=== PATIENT | female | born 1950 ===

== ENCOUNTER 2023-09-04 11:33 | Outpatient (AMB) | payer OTHER, SELFPAY ==
[2023-09-04 11:42] VITALS: BMI 32.9
--- NOTE | 2023-09-04 11:42 | A.OFFVIS_ITS ---
Intake VS Expanded 09/04/23 11:42 09/12/23 13:42 Height 5 ft 5 in 5 ft 5 in Weight 197 lb 8.547 oz 198 lb BMI 32.9 32.9 Intake Visit Reasons: DM2, appt confirmed Medication List - Last Reconciled 09/12/[address], LDN hydrochlorothiazide 12.5 mg PO DAILY lisinopril 10 mg PO DAILY ie-qqs-cftye-calcium carb-K1 400 mcg-500 mg calcium-20 mcg (Women's 50 Plus Multivitamin) tabs PO pravastatin 20 mg PO DAILY HPI Nutrition Presentation Details PT presents for MNT for T2DM. Pt was referred by primary care provider Jefe Gay NP from [facility]. Pt reports feeling well. Typical meal intake B: rice krispies cereal or cornflakes banana, milk 2%) L: sandwich and soup ( chicken noodle vegetables soup) water or OJ or soda (seldom) snack tyree crackers or milk D: vegetable , fish 3 times/wk , baked chicken with rice/ spaghetti , ater or juice Denies alcohol/smoking Physical activity daily life activities food frequency fruits 0-1/d vegetables daily 2 serving dairy : 2-3 starches > 20 servings/ protein 10 oz/d EGP-Xeglhqy-Ey.Jeor Equation Height 5 ft 5 in Weight 198 lb Resting Metabolic Rate 1413.85 Calculated Activity Level Mild Activity Calories Needed to Maintain Weight 1944.04 Diagnosis Nutrition problem #1 food nutri know defi As related to (etiology) #1 diagnosis As evidenced by (sign/symptom) #1 knowledge deficit of diet Monitoring/Goals Nutrition problem monitoring level of knowledge/skill Nutrition goal/outcome list 3 CHO foods and list 3 high fiber foods Outcome progress verbalized understanding Learning/Education Readiness to learn good Stages of change preparation Educational materials provided Yes (meal planning) Most Recent Diabetes Results: No Data to Display [facility] Medical History (Updated 09/12/23 @ 13:[address], LDN) Osteopenia Hyperlipidemia Surgical History (Updated 09/12/23 @ 13:[address], LDN) History of partial mastectomy of left breast Assessment & Plan Assessment & Plan (1) T2DM (type 2 diabetes mellitus): Code(s): E11.9 - Type 2 diabetes mellitus without complications Plan: wt: 90 kg Est kcal needs as per MSJ: 1900 (40% carb, 30% protein/fat) Est fluid needs as per 25-30 ml/d: 2250 Est prot per day as per 1 g/kg bw: 90 Recommend fiber intake : 8-10 g per day and gradually increase to 25-28 g per day for women and 35-38 g for men or as tolerated Recommend sodium intake per day : less than 2000 mg Educated patient on: ( R = reviewed V = verbalizes understanding N/R = needs review N/A = not applicable * Food sources of carbohydrate, adequate serving sizes and its role in various health conditions: R * Differences between complex carbohydrates a simple carbohydrates, role of fiber in diet: R * Differences between types of fats and role in diet (mono on saturated fat fatty acids, saturated fatty acids, trans fats): R basic * Food sources of sodium in salt and healthy modifications for heart health in kidney health: R * Healthy plate method concept: R * Physical activity: Benefits a precaution: R * Dietary prevention of Hyperglycemia: R Patient Instructions: Reduce on total carbohydrat to 45-60 g following healthy plate method Drink water with meals Choose fiber containing foods (cereals/starches/fruits/vegs) Coding Level of Care Code Nutr Indiv Intake (62916) Diagnoses T2DM (type 2 diabetes mellitus) E11.9 Time Spent (min) 30
[2023-09-12 13:42] VITALS: BMI 32.9
== END 2023-09-04 12:12 | disposition home or self-care (01) ==
LOC: HO.ENCR 11:33
PROVIDERS: Visit Provider Dietitian, Registered
DX: E11.9 Type 2 diabetes mellitus without complications (principal)

== ENCOUNTER → 2023-09-04 11:33 | Outpatient (BNVA) | payer OTHER, SELFPAY | PROVIDERS: Visit Provider Dietitian, Registered | DX: E11.9 Type 2 diabetes mellitus without complications (principal); Z71.3 Dietary counseling and surveillance | CPT/HCPCS: 97802 ==

== ENCOUNTER 2023-10-30 09:47 | Outpatient (AMB) | payer OTHER, SELFPAY ==
--- NOTE | 2023-10-30 09:51 | MHC.AMNUTRGE ---
Intake VS Expanded 10/30/23 09:54 Height 5 ft 5 in Weight 194 lb 3.636 oz BMI 32.3 Intake Visit Reasons: [id number] HPI Nutrition Presentation Details Pt presents for MNT f/u for T2DM controlled by diet and exercise . Pt was referred by PCP, Dr. Petr Waller, [facility] Pt reports working on meal portion sizes. Pt has questions regarding food labels. Today we will review labels/carbs and sodium Fried food/wk: 0-1/wk, baking mostly eating out /wk and choices:0-1/x, choosing salads or sand preferably Dairy serving/d and choices: 1-2 (milk, cheese) Fruit servings/d : 3 + d/ay vegetable servings: 3 serving/d starchy vex/wk protein serving/d : 6-9 oz/d including fish 2-3 x/wk/ Beverages of choice:water, tea, milk about 64 oz/d physical activity: dailylife activities Most Recent Diabetes Results: No Data to Display [facility] Medical History (Updated 09/12/23 @ 13:[address], LDN) Osteopenia Hyperlipidemia Surgical History (Updated 09/12/23 @ 13:[address], LDN) History of partial mastectomy of left breast Assessment & Plan Assessment & Plan (1) T2DM (type 2 diabetes mellitus): Code(s): E11.9 - Type 2 diabetes mellitus without complications Plan: wt: 90 kg (88 kg on 10/2023) Est kcal needs as per MSJ: 1900 (40% carb, 30% protein/fat) Est fluid needs as per 25-30 ml/d: 2250 Est prot per day as per 1 g/kg bw: 90 Recommend fiber intake : 8-10 g per day and gradually increase to 25-28 g per day for women and 35-38 g for men or as tolerated Recommend sodium intake per day : less than 2000 mg Educated patient on: ( R = reviewed V = verbalizes understanding N/R = needs review N/A = not applicable Food sources of carbohydrate, adequate serving sizes and its role in various health conditions: R Differences between complex carbohydrates a simple carbohydrates, role of fiber in diet: R Differences between types of fats and role in diet (mono on saturated fat fatty acids, saturated fatty acids, trans fats): R basic Food sources of sodium in salt and healthy modifications for heart health in kidney health: R Healthy plate method concept: R Physical activity: Benefits a precaution: R Dietary prevention of Hyperglycemia: R Patient Instructions: Read food label, reducing total carb at meal time to 60 g , continue choosing foods high in fiber : 3 g or more per serving Work on reducing amount of sodium, choose low sodium seasonings - see list of options for meals with less salt Continue physically active as able and keeping hydrated by having water with meals/snacks Coding Level of Care Code Nutr Indiv Subseq (88157) Diagnoses T2DM (type 2 diabetes mellitus) E11.9 Time Spent (min) 30
[2023-10-30 09:54] VITALS: BMI 32.3
== END 2023-10-30 10:34 | disposition home or self-care (01) ==
PROVIDERS: Visit Provider Dietitian, Registered
DX: E11.9 Type 2 diabetes mellitus without complications (principal)

== ENCOUNTER → 2023-10-30 09:47 | Outpatient (BNVA) | payer OTHER, SELFPAY | PROVIDERS: Visit Provider Dietitian, Registered | DX: E11.9 Type 2 diabetes mellitus without complications (principal); Z71.3 Dietary counseling and surveillance | CPT/HCPCS: 97803 ==

== ENCOUNTER 2024-01-16 09:35 | Outpatient (AMB) | payer OTHER, SELFPAY ==
--- NOTE | 2024-01-16 09:42 | A.OFFVIS_ITS ---
Intake VS Expanded 01/16/24 09:43 01/23/24 09:22 Height 5 ft 5 in 5 ft 5 in Weight 197 lb 1.492 oz 197 lb BMI 32.8 32.8 Intake Visit Reasons: DM HPI Nutrition Presentation Details Pt presents for MNT f/u for T2DM controlled via diet and exercise. Patient was referred by Dr. Eleazar Lowry/Martin Gay NP Patient's most recent A1c at 6.9% June/2023 Patient reports typically having 3 meals per day including a variety food and following healthy plate method fish: 3 times/wk Includes Nuts fruits: daily water: 16-24 oz water and 8-12 oz of glass of milk Day ring 0-1 per day reports taking a calcium supplement once a day exercise class twice a week Saturday and Sat ( [facility]) QQJ-Rsamaoq-Qj.Jeor Equation Height 5 ft 5 in Weight 197 lb Resting Metabolic Rate 1409.32 Calculated Activity Level Sedentary Calories Needed to Maintain Weight 1691.18 Diagnosis Nutrition problem #1 food nutri know defi As related to (etiology) #1 diagnosis As evidenced by (sign/symptom) #1 knowledge deficit of diet (Portion size) Monitoring/Goals Nutrition problem monitoring level of knowledge/skill, total PRO intake, total CHO intake and oral fluids Nutrition goal/outcome list 3 CHO foods, wt loss 5lbs in 2 months and list 3 high fiber foods Outcome progress verbalized understanding Learning/Education Readiness to learn good Stages of change action Educational materials provided Yes (Meal planning) Most Recent Diabetes Results: No Data to Display [facility] Medical History (Updated 09/12/23 @ 13:[address], LDN) Osteopenia Hyperlipidemia Surgical History (Updated 09/12/23 @ 13:[address], LDN) History of partial mastectomy of left breast Assessment & Plan Assessment & Plan (1) T2DM (type 2 diabetes mellitus): Code(s): E11.9 - Type 2 diabetes mellitus without complications Plan: Wt: 89Kg ( December 2023 ) Est kcal needs as per MSJ: 1700 (40% carb, 30% protein/fat) Est fluid needs as per 25-30 ml/d: 2700 Est prot per day as per 1 g/kg bw: 89 Recommend fiber intake : 8-10 g per day and gradually increase to 25-28 g per day for women and 35-38 g for men or as tolerated Recommend sodium intake per day : less than 2000 mg Educated patient on: ( R = reviewed V = verbalizes understanding N/R = needs review N/A = not applicable * Food sources of carbohydrate, adequate serving sizes and its role in various health conditions: R * Differences between complex carbohydrates a simple carbohydrates, role of fiber in diet: R * Lean protein sources of foods: R * Differences between types of fats and role in diet (mono on saturated fat fatty acids, saturated fatty acids, trans fats): R * Food sources of sodium in salt and healthy modifications for heart health in kidney health: R * Vitamins and minerals: R * Healthy plate method concept: R * Physical activity: Benefits a precaution: R * Hypoglycemia protocol (rule of 15): N/R * Dietary prevention of Hyperglycemia: R Patient Instructions: Continue following healthy plate method, choose high-fiber sources of foods reducing on total carbohydrates to less than 60 g Added meals Be mindful of high fat sources of foods, work on reduction Keep hydrated by having water with meals or snacks Keep physically active as able goal 150 minutes per week Coding Level of Care Code Nutr Indiv Intake (97788) Diagnoses T2DM (type 2 diabetes mellitus) E11.9 Time Spent (min) 30
[2024-01-16 09:43] VITALS: BMI 32.8
[2024-01-23 09:22] VITALS: BMI 32.8
== END 2024-01-16 10:12 | disposition home or self-care (01) ==
PROVIDERS: Visit Provider Dietitian, Registered
DX: E11.9 Type 2 diabetes mellitus without complications (principal)

== ENCOUNTER → 2024-01-16 09:35 | Outpatient (BNVA) | payer OTHER, SELFPAY | PROVIDERS: Visit Provider Dietitian, Registered | DX: E11.9 Type 2 diabetes mellitus without complications (principal); Z71.3 Dietary counseling and surveillance | CPT/HCPCS: 97802 ==